=== PATIENT | female | born 1990 | race Hispanic/Latino ===

== ENCOUNTER 2018-05-07 10:10 | Outpatient (CLI) | payer OTHER ==
[2018-05-07] MEDS ORDERED: LACTATED RINGERS 500 ML IV ONE (12:00)
[2018-05-07 12:01] LABS: Bilirubin,Urine NEG (Negative); Blood,Urine NEG (Negative); Color,Urine Yellow (Yellow); Mucus,Urine FEW /HPF; Protein,Urine <15 mg/dL mg/dL (Negative); Urobilinogen,Urine < 2.0 mg/dL (<2.0)
[2018-05-07 12:42] VITALS: BP 98/58
== END 2018-05-07 12:58 | disposition home or self-care (01) ==
LOC: TRG 10:10
PROVIDERS: ATTEND Obstetrics & Gynecology
DX: O47.02 False labor before 37 completed weeks of gestation, second trimester (principal); Z3A.27 27 weeks gestation of pregnancy
CPT/HCPCS: 59025; 81001; J7120

== ENCOUNTER 2018-06-24 10:36 | Outpatient (CLI) | payer OTHER ==
[2018-06-24 11:15] VITALS: BP 107/68
[2018-06-24] MEDS ORDERED: LACTATED RINGERS 500 ML IV ONE (12:00)
== END 2018-06-24 12:37 | disposition home or self-care (01) ==
LOC: TRG 10:36
PROVIDERS: ATTEND Obstetrics & Gynecology
DX: O47.03 False labor before 37 completed weeks of gestation, third trimester (principal); Z3A.34 34 weeks gestation of pregnancy
CPT/HCPCS: 59025

== ENCOUNTER 2018-08-02 13:10 | Outpatient (CLI) | payer OTHER ==
[2018-08-02 14:50] VITALS: BP 109/71
--- NOTE | 2018-08-02 15:19 | Ultrasound Report ---
FINAL REPORT EXAM: US OB BPP WO NON-STRESS HISTORY: DFM TECHNIQUE: Grayscale and color doppler ultrasound of the fetus was performed for biophysical profile. PRIORS: None. FINDINGS: A single, live intrauterine fetus is present in cephalic presentation with a heart rate of 149 beats per minute. Biophysical profile score of 8 out of 8 was noted. Scores of 2 out of 2 were given for breathing movements, movements, posterior and tone and qualitative amniotic fluid volume. IMPRESSION: Normal biophysical profile.
== END 2018-08-02 16:20 | disposition home or self-care (01) ==
LOC: TRG 13:10
PROVIDERS: ATTEND Obstetrics & Gynecology
DX: O47.1 False labor at or after 37 completed weeks of gestation (principal); Z3A.39 39 weeks gestation of pregnancy
CPT/HCPCS: 59025; 76819

== ENCOUNTER 2018-08-04 12:41 | Inpatient (IN) | payer OTHER ==
[2018-08-04] MEDS ORDERED: BRETHINE IVP PRN (13:27)
[2018-08-04] MEDS ORDERED: MINERAL OIL PO PRN (13:27)
[2018-08-04] MEDS ORDERED: ZOFRAN IV PRN (13:27)
[2018-08-04] MEDS ORDERED: XYLOCAINE 2% INFILTRATI ONE (13:27)
[2018-08-04] MEDS ORDERED: STADOL IV PRN (13:27)
[2018-08-04] MEDS ORDERED: PHENERGAN PR PRN (13:27)
[2018-08-04] MEDS ORDERED: BRETHINE SUB-Q PRN (13:27)
[2018-08-04] MEDS ORDERED: NARCAN 0.4 MG/1 ML IV PRN (13:27)
--- NOTE | 2018-08-04 13:36 | History and Physical Report ---
History of Present Illness Date of examination: 08/04/18 Date of admission: 08/04/18 12:41 Chief complaint: IOL for non reassuring uterus with variable decels in clinic History of present illness: 28 yo G 1p0 at 40 weeks admitted from the clinic with variable decles noted on strip and previous visit for decreased movement. She had a prenatla hx of pituatary adenoma , resolved elevated PLt , nick treated with diflucan, and [facility] consult for zika virus but US neg. GBS neg. Past History Past Medical History: other (pituatary adenoma) Past Surgical History: no surgical history Family/Genetic History: diabetes, other (Hypothyroidsim) Social history: . denies: smoking, alcohol abuse, prescription drug abuse - Obstetrical History Expected Date of Delivery: 08/04/18 Actual Gestation: 40 Week(s) 0 Day(s) : 1 Para: 0 Hx # Term Pregnancies: 0 Number of Pregnancies: 0 Spontaneous Abortions: 0 Induced : 0 Number of Living Children: 0 Medications and Allergies Allergies Allergy/AdvReac Type Severity Reaction Status Date / Time No Known Allergies Allergy Verified 08/02/18 13:17 Home Medications Medication Instructions Recorded Confirmed Last Taken Type No Known Home Medications [No 06/24/18 06/24/18 Unknown History Reported Home Medications] Review of Systems All systems: negative - Vital Signs Vital signs: Vital Signs Pulse BP Pulse Ox 97 H 99/64 94 08/04/18 13:22 08/04/18 13:22 08/04/18 13:22 Temp Pulse Resp BP Pulse Ox 94 H 99/64 98 08/04/18 13:27 08/04/18 13:22 08/04/18 13:27 - Physical Exam Breasts: Positive: normal Cardiovascular: Regular rate, Normal S1 Lungs: Positive: Clear to auscultation, Normal air movement Abdomen: Positive: normal appearance, soft, normal bowel sounds. Negative: distention, tenderness Genitourinary (Female): Positive: normal external genitalia, normal perenium Vulva: both: normal Vagina: Positive: normal moisture Uterus: Positive: normal size, normal contour Anus/Rectum: Positive: normal perianal skin, heme negative Extremities: Positive: normal Deep Tendon Reflex Grade: Normal +2 - Obstetrical FHR: category 1 Uterine Contraction Monitor Mode: External Cervical Dilatation: 0.5 Cervical Effacement Percentage: 10 station: -4 Uterine Contraction Intensity: Mild Results All other labs normal. Assessment and Plan A/P HD#1 IOL for non reassuring strip with variable decels in clinic Term at 40 weeks HX of pituary adenoma- stable IOL for NR status Cervidil to initiate IOL labs type and screen, cbc admission offer epidural expect vaginal delivery
[2018-08-04] MEDS ORDERED: PITOCin/NS 30 UNIT/500ML 30 UNITS/500 ML BAG IV SCH ×2 (14:00)
[2018-08-04] MEDS ORDERED: PITOCin/NS 20 UNIT/1000ML DRIP 20 UNITS/1,000 ML BAG IV SCH (14:00)
[2018-08-04 14:02] LABS: Hematocrit 30.9 % (30.3-42.9); Hemoglobin 10.3 gm/dl (10.1-14.3); Mean Corpuscular HGB Conc 33 % (30-34); Mean Corpuscular Hemoglobin 27 pg (28-32); Mean Corpuscular Volume 83 fl (79-97); Platelet Count 370 K/mm3 (140-440); Red Blood Count 3.74 M/mm3 (3.65-5.03); Red Cell Distribution Width 17.8 % (13.2-15.2)
[2018-08-04] MEDS ORDERED: CERVIDIL VG ONE (14:27)
[2018-08-04] MEDS: LACTATED RINGERS 1,000 ML IV SCH ×2 (16:37→23:55)
[2018-08-05] MEDS: SUBLIMAZE IV PRN ×3 (02:52→07:58)
[2018-08-05] MEDS: LACTATED RINGERS 1,000 ML IV SCH (08:01)
[2018-08-05] MEDS ORDERED: NARCAN 2 MG/2 ML IV PRN (08:04)
--- NOTE | 2018-08-05 08:04 | Anesthesia Consultation ---
Anesthesia Consult and Med Hx Date of service: 08/05/18 - Airway Anesthetic Teeth Evaluation: Good ROM Head & Neck: Adequate Mental/Hyoid Distance: Adequate Mallampati Class: Class II Intubation Access Assessment: Probably Good - Pre-Operative Health Status ASA Pre-Surgery Classification: ASA2 Proposed Anesthetic Plan: Epidural, Spinal - Pulmonary Hx Asthma: No COPD: No Hx Pneumonia: No - Cardiovascular System Hx Hypertension: No - Central Nervous System Hx Seizures: No Hx Psychiatric Problems: No - Endocrine Hx Renal Disease: No Hx End Stage Renal Disease: No Hx Hypothyroidism: No Hx Hyperthyroidism: No - Hematic Hx Anemia: No Hx Sickle Cell Disease: No - Other Systems Hx Alcohol Use: No
--- NOTE | 2018-08-05 08:26 | Event Note ---
Date: 08/05/18 patient was noted to be in pain. VSS cat 1 strip pelvic 2-/-3 called for epidural continue pitocin for induction
[2018-08-05] MEDS ORDERED: fentaNYL-BUPIV 2 MCG/ML-0.125% 200 MCG/100 ML BAG EPIDURAL SCH (10:00)
[2018-08-05] MEDS ORDERED: ANCEF/STERILE WATER 2 GM/20 ML 2 GM/20 ML SYRINGE IV ONE (11:56)
[2018-08-05] MEDS ORDERED: REGLAN ONE (11:56)
[2018-08-05] MEDS ORDERED: BICITRA ONE (11:56)
[2018-08-05] MEDS ORDERED: LACTATED RINGERS 1,000 ML IV SCH (12:00)
[2018-08-05] MEDS ORDERED: BICITRA PO NR (12:00)
[2018-08-05] MEDS ORDERED: PITOCin/NS 20 UNIT/1000ML DRIP 20 UNITS/1,000 ML BAG IV SCH ×2 (12:00→14:00)
[2018-08-05] MEDS ORDERED: ANCEF/STERILE WATER 2 GM/20 ML 2 GM/20 ML SYRINGE IV NR (12:00)
[2018-08-05] MEDS ORDERED: PEPCID IV NR (12:00)
[2018-08-05] MEDS ORDERED: REGLAN IV NR (12:00)
[2018-08-05] MEDS ORDERED: XYLOCAINE MPF 2% ONE ×2 (12:20→13:22)
[2018-08-05] MEDS ORDERED: WATER FOR IRRIG STERILE IR ONE (12:24)
[2018-08-05] MEDS ORDERED: NACL 0.9% IR ONE (12:24)
[2018-08-05] MEDS ORDERED: METHERGINE IM ONE (12:36)
[2018-08-05] MEDS ORDERED: NEO SYNEPHRINE/NS Syringe(OR USE) IV ONE (12:43)
[2018-08-05] MEDS ORDERED: ASTRAMORPH PF 10MG/10ML ONE (12:48)
[2018-08-05] MEDS ORDERED: NORCO 5/325 PO PRN (13:09)
[2018-08-05] MEDS ORDERED: MORPHINE IV PRN ×2 (13:09)
[2018-08-05] MEDS ORDERED: MILK OF MAGNESIA PO PRN (13:09)
[2018-08-05] MEDS ORDERED: NARCAN 0.4 MG/1 ML IV PRN (13:09)
[2018-08-05] MEDS ORDERED: TUCKS PAD TP PRN (13:09)
[2018-08-05] MEDS ORDERED: MYLICON PO PRN (13:09)
[2018-08-05] MEDS ORDERED: LANSINOH TP PRN (13:09)
[2018-08-05] MEDS ORDERED: TYLENOL PR PRN (13:09)
[2018-08-05] MEDS ORDERED: SENOKOT PO PRN (13:09)
[2018-08-05] MEDS ORDERED: TORADOL IV PRN ×2 (13:09→13:44)
--- NOTE | 2018-08-05 13:15 | Procedure Note ---
OB Delivery Note - Delivery Date of Delivery: 08/05/18 Surgeon: ISAURA AVILEZ Estimated blood loss: other (600cc) - Section Preop diagnosis: nonreassuring FHR tracing, other (intolerance to labor) section procedure: section Disposition: PACU Complications: none - Infant A at 1 minute: 8 Infant Gender: Male (2954 g)
--- NOTE | 2018-08-05 13:19 | Operative Report ---
Operative Report Operative Report: DATE OF OPERATION: 08/05/2018 PREOPERATIVE DIAGNOSES: 1. Intrauterine gestation at 41 weeks, in active labor, second stage. 2. Arrest of descent. 3. Persistent occiput posterior position. 4. Intolerance to labor POSTOPERATIVE DIAGNOSES: 1-4 SANDOR OPERATION PERFORMED: Primary low transverse section. SURGEON: Radha Trammell MD ANESTHESIA: Epidural. COMPLICATIONS: None. ESTIMATED BLOOD LOSS: 600 mL. DRAINS: Palumbo catheter to the bladder. SPECIMENS TO PATHOLOGY: Cord blood for routine testing. OPERATIVE FINDINGS: A viable male with Apgars of 8 and 9 and birthweight of 6 pounds 8 ounces was delivered from a cephalic presentation, persistent occiput posterior position. The cord contained 3 vessels. There was normal anterior fundal placenta. The amniotic fluid was clear. The uterus, fallopian tubes and ovaries were normal. DESCRIPTION OF OPERATION: The patient was brought to the operating suite in stable condition with epidural anesthesia on board and an indwelling catheter in place in the bladder. The patient was placed supine on the operating room table and rolled to her left side with a wedge. The abdomen was prepped and draped in standard fashion for section. After testing with forceps to assure an adequate anesthetic level, the surgery was commenced. We had counseled the patient extensively regarding the risks of the surgery including but not limited to stroke, embolus, phlebitis, pain, infection, hemorrhage, as well as injury to the infant and the internal organs such as the bowel, bladder, blood vessels, nerves, kidneys, ureters and pelvic organs. The patient was aware of the postoperative morbidity issues and recovery timeframes. The patient was aware she can form adhesions, which can result in obstruction of loop of bowel or ureter or chronic pain. She was aware that should she have hemorrhage and require blood transfusion, there was a small chance for exposure to hepatitis or HIV disease. With the scalpel, a Pfannenstiel skin incision was made. Dissection was carried down sharply through the subcutaneous tissues and fascia in a transverse plane with the scalpel, electrocautery and curved Rogers scissors. The fascia was sharply freed up superiorly and inferiorly from the underlying rectus muscles, which were bluntly and sharply divided. The peritoneum was entered carefully in a clear space with a curved hemostat. The peritoneal incision was then extended vertically with Metzenbaum scissors. A retractor and bladder blade were placed. A bladder flap was created by incising transversely through the peritoneum and vesicouterine fold and then bluntly dissecting the bladder distally. With the scalpel, a low transverse hysterotomy was commenced. The serosa and myometrium were scored with the scalpel. The uterine cavity was actually entered bluntly with a curved hemostat. The uterine incision was then extended laterally with the detector car operator's fingers. An intrauterine hand was placed and the head of the infant was brought up out of the pelvis into the uterine incision. With fundal pressure, he was delivered without difficulty. The nasopharynx and oropharynx were suctioned. The cord was doubly clamped and transected. The was then handed off to the nursery personnel. Apgars were good at 8 and 9. A cord pH was obtained, which subsequently revealed a normal value. Further cord blood was collected for routine testing. Intravenous Pitocin and antibiotics were administered. The placenta was manually removed. The uterine cavity was then curetted with a dry sponge and freed of the remaining membranes. The edges of the uterine incision were grasped with Dinh clamps. With the massage and the Pitocin, the uterus began to firm up normally. The uterine incision was then closed in 2 layers of 0 Vicryl sutures. The first suture was placed to the endometrium and myometrium. The second suture was placed through the endopelvic fascia and also reincorporated the bladder flap peritoneum. Peritoneal lavage was then performed. The pelvis and gutters were irrigated and suctioned and cleared of all blood and clots and amniotic fluid. The uterine incision was reinspected to assure hemostasis. The uterus, tubes and ovaries were inspected and were normal. Once we were satisfied with the hemostasis, attention was turned to closure of the abdominal incision. The peritoneum, muscles and fascia were closed in layers using 0-Vicryl sutures. The subcutaneous tissue was closed with 3-0 plain sutures. The skin was closed with a subcuticular suture of 4-0 Vicryl followed by benzoin, Steri-Strips and a Telfa dressing. The patient was moved to the recovery room in stable condition with the Palumbo catheter draining clear urine. Instruments, sponge and needle counts were reported as correct. Estimated blood loss was 600 mL. There were no complications.
[2018-08-05] MEDS ORDERED: BENADRYL IV PRN (13:41)
[2018-08-05] MEDS ORDERED: DILAUDID IV PRN (13:41)
--- NOTE | 2018-08-05 13:41 | Anesthesia Day of Surgery ---
Anesthesia Day of Surgery - Day of Surgery Patient Examined: Yes Patient H&P Reviewed: Yes Patient is NPO: Yes
[2018-08-05] MEDS ORDERED: SODIUM CHLORIDE FLUSH SYRINGE 10 ML IV NR (14:00)
[2018-08-05] MEDS: TORADOL IV PRN ×2 (14:44→21:29)
[2018-08-05] MEDS ORDERED: AMPICILLIN/NS 1 GM/50 ML 1 GM/50 ML BAG IV ONE (18:00)
[2018-08-05] MEDS ORDERED: POLYCILLIN IM ONE (18:30)
[2018-08-05] MEDS ORDERED: POLYCILLIN IV ONE (18:30)
[2018-08-05] MEDS: D5LR 1,000 ML IV SCH (21:28)
[2018-08-06 00:46] LABS: Hematocrit 26.5 % (30.3-42.9); Hemoglobin 8.9 gm/dl (10.1-14.3)
[2018-08-06] MEDS: TORADOL IV PRN (04:02)
[2018-08-06] MEDS: D5LR 1,000 ML IV SCH (05:24)
[2018-08-06] MEDS ORDERED: M-M-R II VACCINE SUB-Q ONE (06:00)
[2018-08-06] MEDS ORDERED: BOOSTRIX IM ONE (06:00)
--- NOTE | 2018-08-06 08:07 | Progress Note ---
Assessment and Plan A/P POD#1 s/p primary csec for intolerance to labor, failed iOL HX of pituary adenoma- stable routine Post op orders d/c sampson encouraged ambulation and incentive spirometry VSS anemia acute iron bid Subjective - Subjective Date of service: 08/06/18 Principal diagnosis: s/p primary csec for intolerance to labor Interval history: 28 yo G 1p0 at 40 weeks admitted from the clinic with variable decles noted on strip and previous visit for decreased movement. She had a prenatla hx of pituatary adenoma , resolved elevated PLt , nick treated with diflucan, and [facility] consult for zika virus but US neg. GBS neg. Patient reports: appetite normal, pain well controlled [place]: doing well Objective - Vital Signs Latest vital signs: Vital Signs Temp Pulse Resp BP BP Pulse Ox 08/06/18 04:10 98.7 F 66 18 114/79 08/06/18 00:30 98.7 F 79 18 102/68 08/05/18 20:00 98.7 F 90 16 117/73 08/05/18 16:58 99.1 F 122/74 08/05/18 15:20 99.4 F 94 H 20 110/69 08/05/18 14:45 99.1 F 90 16 122/74 99 08/05/18 14:30 100 H 16 108/86 99 08/05/18 14:15 95 H 17 122/75 99 08/05/18 14:00 96 H 19 120/77 98 08/05/18 13:45 95 H 17 120/73 98 08/05/18 13:40 91 H 17 126/71 98 08/05/18 13:35 97.7 F 95 H 17 128/74 98 08/05/18 12:02 111 H 162/71 08/05/18 11:31 78 112/67 08/05/18 11:02 67 96/57 08/05/18 10:31 75 111/68 08/05/18 10:01 75 122/78 08/05/18 09:32 75 113/72 08/05/18 09:01 83 117/59 08/05/18 08:32 92 H 116/82 Intake and Output 08/05/18 08/06/18 08/06/18 23:59 07:59 15:59 Intake Total 300 991.667 Output Total 1400 1700 Balance -1100 -708.333 Intake: IV 991.667 D5lr 1,000 ml @ 125 mls/ 991.667 hr IV DIRECT ELIZABETH Rx#: [id number] Intake, Free Water 300 Output: Urine 1400 1700 Indwelling Catheter 900 Void 1400 800 Other: Total, Output Amount 600 900 # Voids Void 1 1 - Exam Breasts: Present: normal Cardiovascular: Present: Regular rate, Normal S1 Lungs: Present: Clear to auscultation, Normal air movement Abdomen: Present: normal appearance, soft, normal bowel sounds. Absent: distention, tenderness, guarding Vulva: both: normal Uterus: Present: normal, firm, fundal height below umbilicus. Absent: bogginess , tenderness Extremities: Present: normal Deep Tendon Reflex Grade: Normal +2 Incision: Present: normal, dry, dressed - Labs Labs: Abnormal lab results 08/06/18 Range/Units 00:34 Hgb 8.9 L (10.1-14.3) gm/dl Hct 26.5 L (30.3-42.9) %
[2018-08-06] MEDS: PRENATAL VITAMIN PO SCH (08:55)
[2018-08-06] MEDS: PERCOCET 5/325 PO PRN ×3 (08:55→23:45)
[2018-08-06] MEDS ORDERED: FEOSOL PO SCH (10:00)
[2018-08-06] MEDS: MOTRIN PO PRN (22:21)
[2018-08-06] MEDS: FEOSOL PO SCH (22:21)
--- NOTE | 2018-08-07 08:28 | Progress Note ---
Assessment and Plan O: VSS AF PP H/H: 10.4/31.0 A: Stable POD #2 Poor pain controll P: Change medication D/C am Subjective - Subjective Date of service: 08/07/18 Principal diagnosis: s/p primary csec for intolerance to labor Patient reports: appetite normal, voiding normally, flatus, ambulating normally , no pain well controlled (voiced pain, medication ineffective) : doing well, nursing well Objective - Vital Signs Latest vital signs: Vital Signs Temp Pulse Resp BP 08/07/18 00:45 18 08/06/18 23:21 16 08/06/18 22:21 18 08/06/18 16:50 98.3 F 92 H 18 100/69 08/06/18 10:30 98.8 F 94 H 18 96/60 Intake and Output 08/06/18 08/07/18 08/07/18 22:59 06:59 14:59 Intake Total 240 Output Total 600 Balance -360 Intake: Oral 240 Output: Urine 600 Indwelling Catheter 600 Other: Total, Intake Amount 240 Total, Output Amount 600 - Exam Breasts: Present: deferred Lungs: Present: Normal air movement Abdomen: Present: normal appearance, soft, normal bowel sounds. Absent: distention Uterus: Present: normal, firm, fundal height below umbilicus. Absent: bogginess , tenderness Extremities: Present: normal Incision: Present: normal, dry, intact
[2018-08-07] MEDS: FEOSOL PO SCH ×2 (08:30→22:56)
[2018-08-07] MEDS: MOTRIN PO PRN ×2 (08:30→20:17)
[2018-08-07] MEDS: PERCOCET 5/325 PO PRN ×2 (08:30→15:25)
[2018-08-07] MEDS: PRENATAL VITAMIN PO SCH (08:30)
[2018-08-08] MEDS: PERCOCET 5/325 PO PRN ×2 (06:10→13:26)
[2018-08-08] MEDS: PRENATAL VITAMIN PO SCH (10:50)
[2018-08-08] MEDS: FEOSOL PO SCH (10:50)
--- NOTE | 2018-08-08 13:03 | Event Note ---
Date: 08/08/18 Contacted by pt's nurse secondary to sudden onset of chest pain and dyspnea. EKG and chest x-ray ordered. Continue to monitor clinical status.
--- NOTE | 2018-08-08 13:56 | XRay Report ---
AP CHEST: HISTORY: Chest pain, dyspnea, recent AP view of the chest demonstrates a normal mediastinal and cardiac contour with clear lungs and normal bony and soft tissue structures. IMPRESSION: Unremarkable AP chest.
--- NOTE | 2018-08-08 14:54 | Progress Note ---
Assessment and Plan A: POD# 3 s/p primary at term Anxiety P: Discharge today with follow up in [address] Trammell. Subjective - Subjective Date of service: 08/08/18 Principal diagnosis: s/p primary csec for intolerance to labor Interval history: Pt had episode of chest pain and shortness of breath earlier. CXR WNL. EKG WNL. Pt feels that she had an anxiety attack. She desires to go home. Patient reports: appetite normal, voiding normally, pain well controlled, flatus , ambulating normally, no bowel movement, no nauseated [place]: doing well Objective - Vital Signs Latest vital signs: Vital Signs Temp Pulse Resp BP BP Pulse Ox 08/08/18 13:05 97.5 F L 102 H 18 128/92 100 08/08/18 06:10 18 08/08/18 05:39 98.6 F 95 H 20 119/81 97 08/07/18 21:17 16 08/07/18 20:17 18 - Exam Breasts: Present: deferred Cardiovascular: Present: Regular rate Lungs: Present: Clear to auscultation Abdomen: Present: soft, normal bowel sounds Uterus: Present: fundal height below umbilicus Extremities: Present: normal Incision: Present: intact
--- NOTE | 2018-08-08 16:13 | Discharge Summary ---
Providers - Providers Date of Admission: 08/04/18 12:41 Date of discharge: 08/08/18 Attending physician: DRU BERNAL Primary care physician: ISAURA TRAMMELL MD Hospitalization Reason for admission: induction of labor (Nonreactive NST) Delivery: Procedure: section, primary low transverse Procedure details: Please see operative note. Incision: intact Other procedures: none complications: none Discharge diagnosis: IUP at term delivered baby: male Hospital course: Pt was admitted for induction of labor secondary to non-reactive NST. She ultimately had a primary section which she tolerated well. Her postoperative course was uncomplicated other than an anxiety attack shortly before discharge (normal chest x ray and EKG). She will follow up with Dr Trammell in 1 week. Condition at discharge: Stable Disposition: DC-01 TO HOME OR SELFCARE - Discharge Diagnoses (1) Term of male Status: Acute (2) delivery delivered Status: Acute (3) Anxiety Status: Acute Plan - Discharge Medications Prescriptions: Ferrous Sulfate 325 mg PO BID #60 tablet. Ibuprofen [Motrin] 600 mg PO Q8H PRN #30 tablet PRN Reason: Pain oxyCODONE /ACETAMINOPHEN [Percocet 5/325] 1 tab PO Q6HR PRN #30 tablet PRN Reason: Pain - Provider Discharge Summary Activity: routine, no sex for 6 weeks, no heavy lifting 4 weeks, no strenuous exercise Diet: routine Instructions: routine Additional instructions: [] Smoking cessation referral if applicable(refer to patient education folder for contact #) [] Refer to [facility] Booklet Call your doctor immediately for: * Fever > 100.5 * Heavy vaginal bleeding ( >1 pad per hour) * Severe persistent headache * Shortness of breath * Reddened, hot, painful area to leg or breast * Drainage or odor from incision. * Keep incision clean and dry at all times and follow doctor's instructions regarding bathing/showering - Follow up plan Follow up: ISAURA TRAMMELL MD [Primary Care Provider] - 7 Days (Please call to schedule a one week follow up with Dr Trammell )
[2018-08-08 18:06] VITALS: BP 112/73
== END 2018-08-08 16:40 | disposition home or self-care (01) | DRG 765 ==
LOC: LD 12:41 → OB 08-05 16:56
PROVIDERS: ADMIT Obstetrics & Gynecology; ATTEND Obstetrics & Gynecology
PROC: 10D00Z1 Extraction of Products of Conception, Low, Open Approach (ICD-10-PCS; principal; 2018-08-05)
PROC: 3E0234Z Introduction of Serum, Toxoid and Vaccine into Muscle, Percutaneous Approach (ICD-10-PCS; 2018-08-06)
DX: O64.8XX0 Obstructed labor due to other malposition and malpresentation, not applicable or unspecified (principal); D62 Acute posthemorrhagic anemia; Z37.0 Single live birth; Z23 Encounter for immunization; O76 Abnormality in fetal heart rate and rhythm complicating labor and delivery; Z83.3 Family history of diabetes mellitus; Z83.49 Family history of other endocrine, nutritional and metabolic diseases; Z3A.40 40 weeks gestation of pregnancy; O62.1 Secondary uterine inertia; O99.02 Anemia complicating childbirth; O99.344 Other mental disorders complicating childbirth; F41.9 Anxiety disorder, unspecified
CPT/HCPCS: 36415; 71045; 85014; 85018; 85027; 86592; 86850; 86900; 86901; 88307; 93005; 93010; 99211; A6250; G0463; J0290; J0690; J1885; J2210; J2274; J2370; J2405; J2590; J2765; J3010; J3105; J7120; J7121

== ENCOUNTER 2018-08-09 12:19 | Emergency (ER) | payer OTHER ==
[2018-08-09] MEDS ORDERED: ZOFRAN IV ONE (12:44)
[2018-08-09] MEDS ORDERED: MORPHINE IV ONE (12:44)
[2018-08-09] MEDS ORDERED: NACL 0.9% 1000 ML 1,000 ML IV ONE (12:44)
--- NOTE | 2018-08-09 12:47 | Emergency Department Report ---
ED General Adult HPI - General Chief complaint: Headache Stated complaint: MIGRAINE/ABD PAIN Time Seen by Provider: 08/09/18 12:43 Source: patient, family Mode of arrival: Wheelchair Limitations: No Limitations - History of Present Illness Initial comments: Patient is 28 years old female 1 para 1 status post 4 days ago. Patient presented to the ER complaining of headache neck pain has started yesterday. Patient had epidural for her . Patient denied any fever, nausea vomiting. Patient denied any weakness, numbness or tingling sensation. - Related Data Previous Rx's Medication Instructions Recorded Last Taken Type Ferrous Sulfate 325 mg PO BID #60 tablet. 08/05/18 Unknown Rx Ibuprofen [Motrin] 600 mg PO Q8H PRN #30 tablet 08/05/18 Unknown Rx oxyCODONE /ACETAMINOPHEN [Percocet 1 tab PO Q6HR PRN #30 tablet 08/05/18 Unknown Rx 5/325] Allergies Allergy/AdvReac Type Severity Reaction Status Date / Time No Known Allergies Allergy Verified 08/02/18 13:17 ED Review of Systems ROS: Stated complaint: MIGRAINE/ABD PAIN Other details as noted in HPI Comment: All other systems reviewed and negative Constitutional: denies: chills, fever Respiratory: denies: cough, orthopnea, shortness of breath, SOB with exertion, SOB at rest, wheezing Cardiovascular: denies: chest pain, palpitations Gastrointestinal: denies: abdominal pain, nausea, vomiting, diarrhea, constipation, hematemesis, hematochezia Genitourinary: denies: urgency, dysuria, frequency Neurological: headache. denies: weakness, numbness, paresthesias, confusion, abnormal gait ED Past Medical Hx - Past Medical History Previous Medical History?: Yes Hx Hypertension: No Hx Congestive Heart Failure: No Hx Diabetes: No Hx Deep Vein Thrombosis: No Hx Renal Disease: No Hx Sickle Cell Disease: No Hx Seizures: No Hx Asthma: No Hx COPD: No Hx HIV: No - Surgical History Past Surgical History?: Yes Additional Surgical History: 08/05/2018 - Social History Smoking Status: Former Smoker Substance Use Type: Prescribed - Medications Home Medications: Home Medications Medication Instructions Recorded Confirmed Last Taken Type Ferrous Sulfate 325 mg PO BID #60 tablet. 08/05/18 Unknown Rx Ibuprofen [Motrin] 600 mg PO Q8H PRN #30 tablet 08/05/18 Unknown Rx oxyCODONE /ACETAMINOPHEN [Percocet 1 tab PO Q6HR PRN #30 tablet 08/05/18 Unknown Rx 5/325] ED Physical Exam - General Limitations: No Limitations General appearance: alert, in no apparent distress - Head Head exam: Present: atraumatic, normocephalic, normal inspection - Eye Eye exam: Present: normal appearance, PERRL - ENT ENT exam: Present: normal exam, normal orophraynx, mucous membranes moist, TM's normal bilaterally, normal external ear exam - Neck Neck exam: Present: normal inspection, full ROM. Absent: tenderness, meningismus, lymphadenopathy, thyromegaly - Respiratory Respiratory exam: Present: normal lung sounds bilaterally. Absent: respiratory distress, wheezes, rales, rhonchi, stridor, chest wall tenderness, accessory muscle use, decreased breath sounds, prolonged expiratory - Cardiovascular Cardiovascular Exam: Present: regular rate, normal rhythm, normal heart sounds - GI/Abdominal GI/Abdominal exam: Present: soft, normal bowel sounds. Absent: distended, tenderness, guarding, rebound, rigid, organomegaly, mass, bruit, pulsatile mass - Extremities Exam Extremities exam: Present: normal inspection, full ROM, normal capillary refill. Absent: pedal edema, calf tenderness - Neurological Exam Neurological exam: Present: alert, oriented X3, CN II-XII intact, normal gait, reflexes normal - Skin Skin exam: Present: warm, intact, normal color ED Course Vital Signs 08/09/18 08/09/18 12:25 13:07 Temperature 98 F Pulse Rate 97 H Respiratory 20 19 Rate Blood Pressure 128/80 O2 Sat by Pulse 97 Oximetry ED Medical Decision Making - Lab Data Result diagrams: 08/09/18 13:03 08/09/18 13:03 - Medical Decision Making Patient is 28 years old female 1 para 1 status post 4 days ago. Patient presented to the ER complaining of headache neck pain has started yesterday. Patient had epidural for her . Patient denied any fever, nausea vomiting. Patient denied any weakness, numbness or tingling sensation. Patient received 1 L of fluid, morphine and Zofran. Patient stated that she is feeling much better and her headache is completely resolved. LOC any evidence of preeclampsia in this patient. I believe this is most likely post-spinal tap headache. I advised patient to follow up with his Dr. Radha Trammell and to return to the ER if her symptoms return back for possible blood patching Critical care attestation.: If time is entered above; I have spent that time in minutes in the direct care of this critically ill patient, excluding procedure time. ED Disposition Clinical Impression: spinal headache Disposition: - TO HOME OR SELFCARE Is pt being admited?: No Condition: Stable Instructions: Lumbar Puncture (ED), Acute Headache (ED)
[2018-08-09 13:14] LABS: Basophils # (Auto) 0.1 K/mm3 (0.0-0.1); Eosinophils # (Auto) 0.3 K/mm3 (0.0-0.4); Eosinophils % (Auto) 3.3 % (0.0-4.3); Hematocrit 28.3 % (30.3-42.9); Hemoglobin 9.5 gm/dl (10.1-14.3); Lymphocytes # (Auto) 1.7 K/mm3 (1.2-5.4); Lymphocytes % (Auto) 20.5 % (13.4-35.0); Mean Corpuscular HGB Conc 34 % (30-34); Mean Corpuscular Hemoglobin 28 pg (28-32); Mean Corpuscular Volume 83 fl (79-97); Monocytes # (Auto) 0.4 K/mm3 (0.0-0.8); Monocytes % (Auto) 4.8 % (0.0-7.3); Platelet Count 426 K/mm3 (140-440); Red Blood Count 3.42 M/mm3 (3.65-5.03); Red Cell Distribution Width 18.2 % (13.2-15.2)
[2018-08-09 13:31] LABS: Alanine Aminotransferase 41 units/L (7-56); Albumin 3.2 g/dL (3.9-5); BUN/Creatinine Ratio 15; Blood Urea Nitrogen 6 mg/dL (7-17); Calcium 9.1 mg/dL (8.4-10.2); Hemolysis Index 29
[2018-08-09 14:22] VITALS: BP 119/70
== END 2018-08-09 14:31 | disposition home or self-care (01) ==
LOC: ED 12:19
DX: O89.4 Spinal and epidural anesthesia-induced headache during the puerperium (principal); Z87.891 Personal history of nicotine dependence
CPT/HCPCS: 36415; 80053; 85025; 96374; 96375; 99283; J2270; J2405; J7030

== ENCOUNTER 2022-07-02 20:01 | Emergency (ER) | payer OTHER | END 2022-07-03 17:06 | disposition left against medical advice (07) | LOC: ED 20:01 | DX: S06.0X9A Concussion with loss of consciousness of unspecified duration, initial encounter (principal); Z53.21 Procedure and treatment not carried out due to patient leaving prior to being seen by health care provider; X58.XXXA Exposure to other specified factors, initial encounter; Y93.89 Activity, other specified; Y92.89 Other specified places as the place of occurrence of the external cause; Y99.8 Other external cause status ==